=== PATIENT | female | born 1990 | race Caucasian/White ===

== ENCOUNTER 2017-10-27 06:23 | Emergency (ER) | payer OTHER ==
[2017-10-27 07:02] LABS: #Basophils 0.1 thou/uL (0.0-0.2); #Eosinphils 0.1 thou/uL (0.0-0.7); #Lymphocytes 2.4 thou/uL (1.20-3.40); #Monocytes 0.5 thou/uL (0.11-0.59); #Neutrophils 3.1 thou/uL (1.40-6.50); %Basophils 1.4 % (0.0-1.0); %Eosinophils 2.1 % (0.0-10.0); %Lymphocytes 38.4 % (21.0-51.0); %Monocytes 8.1 % (0.0-10.0); %Neutrophils 49.9 % (42.0-75.0); Hemoglobin 12.9 g/dL (12.0-16.0); Mean Corpuscular HGB CONC 33.3 g/dL (32.0-36.0); Mean Corpuscular Hemoglobin 29.4 pg (27.0-31.0); Mean Corpuscular Volume 88.4 fL (78.0-98.0); Mean Platelet Volume 6.8 fL (7.4-10.4); Platelet Count 222 thou/uL (130-400); RBC Distribution Width 11.7 % (11.5-14.5); Red Blood Cell (RBC) Count 4.39 mill/uL (4.20-5.40); White Blood Cell (WBC) Count 6.1 thou/uL (4.8-10.8)
[2017-10-27 07:11] LABS: BHCG - Serum Negative (NEGATIVE); Pregs Control Background? CLEAR/WHITE (CLR/WHITE); Pregs Control Bar Appear? YES (CONTROL BAR)
[2017-10-27 07:15] LABS: ALT (SGPT) 20 U/L (8-55); AST (SGOT) 17 U/L (5-34); Albumin 4.3 g/dL (3.5-5.0); Alkaline Phosphatase 51 U/L (40-150); Anion Gap 12 mmol/L (10-20); BUN (Urea Nitrogen) 15 mg/dL (7.0-18.7); Bilirubin, Total 0.6 mg/dL (0.2-1.2); Calc. Creatinine Clearance 0 mL/min (70-130); Calcium 9.2 mg/dL (7.8-10.44); Carbon Dioxide 24 mmol/L (22-29); Chloride 105 mmol/L (98-107); Estimated GFR-MDRD 89; Glucose 93 mg/dL (70-105); Potassium 3.8 mmol/L (3.5-5.1); Protein, Total 7.3 g/dL (6.0-8.3); Sodium 137 mmol/L (136-145)
[2017-10-27] MEDS ORDERED: Ketorolac Tromethamine 30 MG/ML VIAL ONE (07:27)
[2017-10-27 07:43] LABS: Bilirubin Negative (Negative); Blood, Urine Moderate (Negative); Clarity CLEAR (Clear); Glucose, Urine (Dipstick) Negative (Negative); Leukocyte Negative (Negative); Nitrite Negative (Negative); Protein, Urine (Dipstick) Negative (Neg-Trace); Specific Gravity, Urine 1.028 (1.002-1.036)
[2017-10-27 07:45] LABS: Bacteria/HPF Rare-Few HPF (None Seen); Hyaline Casts/LPF 0-3 HYALINE CAST LPF (0-3 Hyaline); Pathc Cast-AUWi Flag 0.29 (0-2.49); RBC/HPF GREATER THAN 50-TNTC HPF (0-3); Squamous Epithelial 0-3 HPF (0-3)
--- NOTE | 2017-10-27 10:33 | ULT ---
BILATERAL RENAL ULTRASOUND: Date: 10/27/17 CLINICAL HISTORY: Right flank pain with history of ureterolithiasis. No prior comparison available. FINDINGS: The left renal length is demonstrated at 10.4 cm and right renal length is demonstrated at 9.4 cm. Th ere is no overt hydronephrosis involving either kidney. No discrete renal lesions. Urinary bladder is decompressed, limiting assessment. IMPRESSION: No acute renal pathology identified, sonographically. POS: TAIWO
--- NOTE | 2017-10-27 10:44 | RAD ---
KUB: Date: 10/27/17 INDICATION: Left-sided flank pain with history of renal stones. COMPARISON: Separately performed renal ultrasound dated 10/27/17 at 0830 hours. FINDINGS: There are surgical clips within the right lower quadrant of the abdomen. Bowel gas pattern is unobstr ucted. IUD is seen within the lower central pelvis. There is umbilical ornamentation overlying the mi dline abdomen. No suspicious calcification is evident. No acute osseous abnormality is noted. IMPRESSION: No acute abnormality. POS: TAIWO
== END 2017-10-27 10:36 | disposition home or self-care (01) ==
LOC: ERS 06:23
DX: N23 Unspecified renal colic (principal)
CPT/HCPCS: 36415; 74018; 76770; 80053; 81003; 81015; 84703; 85025; 96361; 96374; J1885